=== PATIENT | female | born 1980 | race Caucasian/White ===

== ENCOUNTER 2022-11-07 19:19 | Emergency (ER) | payer BC ==
[2022-11-07] MEDS ORDERED: Lidocaine 1% with EPINEPHrine 1:100,000 50 ML MDV INFILT ONE (20:00)
[2022-11-07] MEDS ORDERED: Diphtheria,Pertussis(Acell),Tetanus Vaccine 0.5 ML Syringe IM ONE (20:15)
[2022-11-07 20:32] VITALS: BP 117/84; PULSE 76
== END 2022-11-07 20:20 | disposition home or self-care (01) ==
LOC: LB.ED 19:19
DX: S01.01XA Laceration without foreign body of scalp, initial encounter (principal); Z23 Encounter for immunization; W26.8XXA Contact with other sharp object(s), not elsewhere classified, initial encounter
CPT/HCPCS: 12014; 90471; 90715; 99282-25